=== PATIENT | female | born 1990 | race Caucasian/White ===

== ENCOUNTER 2024-12-27 19:49 | Emergency (ER) | payer OTHER, SELFPAY ==
[2024-12-27 19:51] VITALS: BP 108/70
[2024-12-27] MEDS: TYLENOL 1000 MG PO (19:56)
[2024-12-27 20:25] LABS: % Basophils 0.2 % (0-2); % Immature Granulocytes 0.3 % (0-0.5); % Lymphocytes 10.9 % (20.5-51.1); % Neutrophils 84.6 % (42.2-75.2); Absolute Lymphocytes 0.7 10^3/uL (1.2-3.4); Absolute Monocytes 0.3 10^3/uL (0.1-0.6); Absolute Neutrophils 5.4 10^3/uL (1.4-6.5); Hematocrit 40.8 % (37.0-47.0); Hemoglobin 14.1 g/dL (12.0-16.0); Mean Corp Hgb Conc. 34.6 g/dL (33.0-37.0); Mean Corpuscular Hgb 28.8 pg (27.0-31.0); Mean Corpuscular Volume 83.4 fL (81.0-99.0); Mean Platelet Volume 10.1 fL (7.4-10.4); Nucleated Red Blood Cells % 0 %; Platelet Count 159 10^3/uL (130-400); Red Blood Cell Count 4.89 10^6/uL (4.20-5.40); Red Cell Dist. Width 11.9 % (11.5-14.5); White Blood Cell Count 6.3 10^3/uL (4.8-10.8)
[2024-12-27 20:31] LABS: INR 0.95
[2024-12-27 20:35] LABS: ALT (SGPT) 32 U/L (0-35); AST (SGOT) 28 U/L (14-36); Albumin 4.1 g/dl (3.5-5.0); Alkaline Phosphatase 107 U/L (38-126); Blood Urea Nitrogen 8 mg/dl (7-17); Calcium 9.3 mg/dl (8.4-10.2); Carbon Dioxide 22 mmol/L (22-30); Chloride 98 mmol/L (98-107); Glucose 120 mg/dl (70-99); Potassium 3.7 mmol/L (3.5-5.1); Sodium 130 mmol/L (135-145); Total Bilirubin 0.5 mg/dl (0.2-1.3); Total Protein 7.1 g/dl (6.3-8.2); eGFR > 60.00
[2024-12-27 20:44] LABS: COVID-19 Antigen Negative (Negative)
[2024-12-27 20:47] LABS: Troponin I < 0.012 ng/ml
[2024-12-27 21:06] VITALS: BP 100/62
[2024-12-27] MEDS: DUONEB 3 ML INH (21:49)
[2024-12-27] MEDS: VIBRAMYCIN 100 MG PO (22:59)
[2024-12-27] MEDS: VENTOLIN NEBULES 2.5 MG INH (23:00)
--- NOTE | 2024-12-27 23:12 | ED.GENMED ---
History of Present Illness
General
Chief Complaint: Breathing Problem
Source: patient
Exam Limitations: none
Time Seen by Provider: 12/27/24 21:22
Nursing documentation reviewed up to this point in time: agreed with
History of Present Illness
History of Present Illness:
Patient to ED with complaint of flulike symptoms, SOB. States she developed fever and bodyaches on Thursday. Symptoms have gotten progressively worse. Today reports worsening cough, SOB. States she felt like she had a panic attack [employer]. Brought
to ED by spouse for eval
Past History
Past History
ED Past Medical History: None
Review of Systems
Review of Systems
Allergies reviewed?: Yes
All Other Systems: ROS reviewed and negative except as documented in HPI and ROS
Constitutional: Reports fever, fatigue and other (generalized body aches)
EENT: Reports runny nose
Respiratory: Reports cough and trouble breathing
Cardiac: Reports no symptoms
ABD/GI: Reports no symptoms
: Reports no symptoms
Musculoskeletal: Reports no symptoms
Skin: Reports no symptoms
Neurological: Reports no symptoms
Psychiatric: Reports no symptoms
Phy Exam
General Physical Exam
General Presentation: mild distress
General age: appears stated age
General Skin: warm and dry
General Habitus: normal
General Mental: alert
Cardiovascular Exam
Cardiovascular Exam: regular rate/rhythm and no edema
Pulmonary Exam
Pulmonary Exam: lungs clear, no respiratory distress and chest non tender
Cough: non productive cough
Musculoskeletal Exam
Musculoskeletal Exam: full ROM and neuro vasc intact
Skin Exam
Skin Exam: normal color, warm/dry and no rash
Psychiatric Exam
Psychiatric Exam: normal mood/affect
Sepsis
Sepsis Screening
Sepsis Assessment: Sepsis Ruled Out
Sepsis Screen
Sepsis Screen: Sepsis Ruled Out
Date: 12/27/24
Time: 23:22
Course
Orders/Labs/Results
Orders:
Orders
12/27/24 19:54
EKG [Electrocardiogram (*1)] Urgent
Reason for Study: Shortness of Breath
EKG- Treatment ONCE
Acetaminophen [Tylenol] 1,000 mg PO NOW STA
CR Chest - 2 Views Urgent
Comment:
Reason For Exam: SOB
12/27/24 20:13
COVID-19 Antigen Urgent
Source: Nasal Swab
Complete Blood Count/With Diff Urgent
Comprehensive Metabolic Panel Urgent
Prothrombin Time Urgent
Troponin I Urgent
Influenza A+B Rapid Molecular Urgent
EDITH Source: Nasal Swab
Specimen Description:
12/27/24 21:29
Ipratropium/Albuterol Sulfate [Duoneb] 3 ml INH R NOW STA
12/27/24 22:47
Doxycycline [Vibramycin] 100 mg PO NOW STA
12/27/24 22:49
Albuterol Nebs [Ventolin Nebules] 2.5 mg INH R NOW STA
Abnormal Lab Results
12/27/24
20:13
Absolute Lymphs (auto) 0.7 L 10^3/uL
(1.2-3.4)
Neutrophils % 84.6 H %
(42.2-75.2)
Lymphocytes % 10.9 L %
(20.5-51.1)
Sodium 130 L mmol/L
(135-145)
Glucose 120 H mg/dl
(70-99)
12/27/24 20:13
12/27/24 20:13
Vital Signs
Initial and Last Documented VS:
Initial Vital Signs
Temp Pulse Resp BP Pulse Ox
103.1 F H 115 17 108/70 95
12/27/24 19:51 12/27/24 19:51 12/27/24 19:51 12/27/24 19:51 12/27/24 19:51
Last Documented Vital Signs
Temp Pulse Resp BP Pulse Ox
103.1 F H 115 17 108/70 96
12/27/24 19:51 12/27/24 19:51 12/27/24 19:51 12/27/24 19:51 12/27/24 21:01
*Critical Care Note
Total Time (30-74mins, 75-104mins- exclusive of procedures): Not Applicable
Update Note
Update Note:
Patient to ED for report of fever, body aches, cough, SOB. Symptoms started on Thursday. Today felt more SOB. Pulse ox 95%RA. Influenza pos. CXR reveals lingular pneumonia. Labs reviewed. WBC normal. Given duoneb in ED with improvement in
symtpoms. WIll continue at home q4hr, close follow up with PCP. Pneumonia most likely viral howevere will cover possible bacterial etiology with Doxycyline. Offered admission to her but she would like to go home. PUlse ox remains 95% with
walking, fever responding to tylenol in dept. Able to tolerate po fluids. Will discharge home, close follow up with PCP. She was given instructions on s/s to return to ED and she is agreeable to plaln.
ED Attending Note
-
Portions of this chart may have been created with voice recognition software.� Occasional wrong word or��sound alike� substitutions may have occurred due to the inherent limitations of voice recognition software.
Discharge Plan
Departure
Patient Disposition: Home (Routine Discharge)
Date of Disposition: 12/27/24
Time of Disposition: 22:49
Patient with high blood pressure during this ER visit?: No
Condition: Good
Covid-19: Not Applicable
Discharge Problem:
Influenza A, Pneumonia
Instructions: Flu in adults - ED discharge instructions, Pneumonia
Prescriptions:
New
doxycycline hyclate 100 mg tablet
100 mg PO BID Qty: 20 0RF
albuterol sulfate 2.5 mg /3 mL (0.083 %) solution for nebulization
2.5 mg inhalation Q4H PRN (Reason: shortness of breath or wheezing) Qty: 90 0RF
No Action
prednisone 20 MG tablet
20 mg PO DAILY 0RF
ibuprofen 600 MG tablet
600 mg PO Q6HPRN PRN (Reason: cramps) Qty: 30 0RF
Referrals:
NONE,* [Family Provider] -
Activity Restrictions/Additional Instructions:
Follow up with your family doctor in 1-2 days. Return to the emergency department immediately for any changes in/worsening of your symptoms
Interventions
Interventions:
*Risk Screen - Suicide Last Done: 12/27/24 19:53
*General Assessment Last Done: 12/27/24 19:53
*Neglect/Abuse Screening Last Done: 12/27/24 19:53
*ED COVID-19 Vaccine History Last Done: 12/27/24 19:53
ED- Cardiac Assessment Last Done: 12/27/24 21:01
ED- Pulmonary Assessment Last Done: 12/27/24 21:01
Discharge Date and Time
Print Language: MACEDONIAN
== END 2024-12-27 23:23 | disposition home or self-care (01) ==
LOC: EMR 19:49
PROVIDERS: EMERGENCY PHYSICIAN Emergency Medicine
DX: J10.00 Influenza due to other identified influenza virus with unspecified type of pneumonia (principal); J18.9 Pneumonia, unspecified organism; Z11.52 Encounter for screening for COVID-19; Z88.1 Allergy status to other antibiotic agents
CPT/HCPCS: 99284; 94640 ×2; 71046; 80053; 84484; 85025; 85610; 87502; 87811